=== PATIENT | female | born 1960 | race Caucasian/White ===

== ENCOUNTER 2018-06-18 22:20 | Emergency (ER) | payer MEDICAID ==
[2018-06-19 01:04] VITALS: BP 126/84
== END 2018-06-19 01:04 | disposition home or self-care (01) ==
LOC: ED 22:20
DX: L02.31 Cutaneous abscess of buttock (principal); K64.8 Other hemorrhoids; I10 Essential (primary) hypertension
CPT/HCPCS: J2001

== ENCOUNTER 2018-06-20 14:27 | Emergency (ER) | payer MEDICAID ==
[~2018-06-20] VITALS: Ht 162.6 cm; Wt 81.6 kg
[2018-06-20 14:33] VITALS: BP 135/91; Ht 162.6 cm; Wt 81.6 kg
== END 2018-06-20 15:37 | disposition home or self-care (01) ==
LOC: ED 14:27
DX: Z48.00 Encounter for change or removal of nonsurgical wound dressing (principal)

== ENCOUNTER 2020-04-24 04:20 | Emergency (ER) | payer MEDICAID ==
[~2020-04-24] VITALS: Ht 160 cm; Wt 76.2 kg
[2020-04-24 05:18] LABS: PLATELET COUNT 256 x10^3mcL (130-400); RED CELL DISTRIBUTION WIDTH 13.2 % (11.5-14.5)
[2020-04-24 05:22] LABS: CALCIUM 9.1 mg/dL (8.5-10.1); CARBON DIOXIDE 23.9 mmol/L (21-32); CHLORIDE SERUM 103 mmol/L (98-107); CREATININE SERUM 0.9 mg/dL (0.6-1.0); GFR1 > 60 mL/min; GLUCOSE SERUM 109 mg/dL (74-106); POTASSIUM SERUM 4.2 mmol/L (3.5-5.1); SODIUM SERUM 138 mmol/L (136-145)
[2020-04-24 05:26] LABS: ALBUMIN 3.8 g/dL (3.4-5.0); ALKALINE PHOSPHATASE 120 U/L (46-116); ALT/SGPT 25 U/L (14-59); AMYLASE 38 U/L (25-115); AST/SGOT 26 U/L (15-37); BILIRUBIN TOTAL 0.37 mg/dL (0.20-1.00); LIPASE 104 IU/L (73-393); TOTAL PROTEIN, SERUM 7.6 g/dL (6.4-8.2)
[2020-04-24 06:48] VITALS: BP 157/95
== END 2020-04-24 06:48 | disposition home or self-care (01) ==
LOC: ED 04:20
PROVIDERS: Emergency Medicine
DX: K80.20 Calculus of gallbladder without cholecystitis without obstruction (principal); K21.9 Gastro-esophageal reflux disease without esophagitis
CPT/HCPCS: J2310; J2405; J7030; Q0092